=== PATIENT | female | born 1975 | race Caucasian/White ===

== ENCOUNTER → 2022-02-25 10:11 | Outpatient (CLI) | payer OTHER, SELFPAY ==
[2022-02-25 11:07] LABS: COVID19 -Nasal RAPID Negative (Negative)
== END ==
PROVIDERS: Visit Provider Surgery
DX: Z20.822 Contact with and (suspected) exposure to COVID-19 (principal); Z01.812 Encounter for preprocedural laboratory examination
CPT/HCPCS: 87635; C9803